=== PATIENT | female | born 1995 | race Hispanic/Latino ===

== ENCOUNTER 2019-08-20 14:03 | Outpatient (CLI) | payer MEDICAID ==
--- NOTE | 2019-08-20 14:57 | ULT ---
BILATERAL LIMITED BREAST ULTRASOUND: DATE: 08/20/2019. PROVIDED CLINICAL HISTORY: Bilateral nipple discharge. FINDINGS: Limited sonographic interrogation of the retroareolar region of each breast was performed. Multiple dilated ducts are seen on the right in the retroareolar region without evidence for intraductal mass or debris. The sonographic appearance of the retroareolar region on the left is normal. IMPRESSION: 1. Nonspecific right retroareolar ductal dilatation without evidence for intraductal mass. 2. Normal left retroareolar sonogram. POS: OFF
== END 2019-08-20 14:04 | disposition home or self-care (01) ==
LOC: BICULT 14:03
PROVIDERS: ATTEND Family Medicine
DX: N64.52 Nipple discharge (principal); N64.59 Other signs and symptoms in breast; N64.89 Other specified disorders of breast

== ENCOUNTER 2020-05-01 18:06 | Emergency (ER) | payer MEDICAID, SELFPAY ==
[2020-05-01 19:22] LABS: Bacteria/HPF 2+ HPF (None Seen); Bilirubin Negative (Negative); Blood, Urine Negative (Negative); Clarity Clear (Clear); Glucose, Urine (Dipstick) Normal (Negative); Leukocyte 25 Leu/uL (Negative); Nitrite 1+ (Negative); Protein, Urine (Dipstick) Negative (Neg-Trace); RBC/HPF 0-3 HPF (0-3); Squamous Epithelial 0-3 HPF (0-3); Urobilinogen Normal mg/dL (Less than 2); WBC/HPF 0-3 HPF (0-3)
[2020-05-01 21:32] LABS: Pregnancy Test - Urine (BHCG) Negative (Negative); Pregu Control Background? CLEAR/WHITE (CLR/WHITE); Pregu Control Bar Appear? YES (CONTROL BAR); Specific Gravity 1.011 (1.002-1.036)
== END 2020-05-01 21:48 | disposition home or self-care (01) ==
LOC: ERS 18:06
DX: S39.012A Strain of muscle, fascia and tendon of lower back, initial encounter (principal); N39.0 Urinary tract infection, site not specified; X58.XXXA Exposure to other specified factors, initial encounter
CPT/HCPCS: 81003; 81015; 81025; 87077; 87086; 87186; 99283

== ENCOUNTER 2021-10-10 11:11 | Emergency (ER) | payer SELFPAY ==
[2021-10-10] MEDS ORDERED: Dexamethasone 4 mg/ml Vial ONE (14:25)
== END 2021-10-10 14:36 | disposition home or self-care (01) ==
LOC: ERS 11:11
DX: J02.9 Acute pharyngitis, unspecified (principal)
CPT/HCPCS: 99282; J1100

== ENCOUNTER 2025-06-11 15:39 | Emergency (ER) | payer MEDICAID, SELFPAY ==
[2025-06-11] MEDS ORDERED: Dexamethasone 4 MG TAB ONE (16:55)
== END 2025-06-11 17:24 | disposition home or self-care (01) ==
LOC: ERS 15:39
DX: B86 Scabies (principal)
CPT/HCPCS: 99282; J8540